=== PATIENT | female | born 1985 | race Caucasian/White ===

== ENCOUNTER 2017-08-01 08:00 | Inpatient (IN) | payer MEDICAID ==
[~2017-08-01] VITALS: Ht 165.1 cm; Wt 72.6 kg
[2017-08-01] MEDS ORDERED: LR 1,000 ML IV ONE (09:12)
[2017-08-01] MEDS ORDERED: OXYTOCIN/NORMAL SALINE 1,000 ML IV SCH (09:12)
[2017-08-01] MEDS ORDERED: LR 1,000 ML IV SCH (09:12)
[2017-08-01] MEDS ORDERED: TERBUTALINE SULFATE 1 MG/ML VIAL SUBCUT ONE (09:15)
[2017-08-01] MEDS ORDERED: NALBUPHINE HCL 10 MG/ML AMP IVP PRN (09:15)
[2017-08-01] MEDS ORDERED: COMMUNICATION ORDER XX ONE (09:30)
[2017-08-01] MEDS ORDERED: OXYTOCIN 30 UNIT in NACL 0.9% 1,000 ML IV ONE (09:30)
[2017-08-01 09:36] LABS: HEMOGLOBIN 10.8 g/dL (12.0-16.0); MEAN CORPUSCULAR HEMOGLOBIN 29 pg (27-31); MEAN CORPUSCULAR HGB CONC 34 % (32-36); MEAN CORPUSCULAR VOLUME 87 fL (79.0-98.0); PLATELET COUNT (AUTO) 163 K/uL (130-430); RED BLOOD CELL COUNT(AUTO) 3.69 MIL/uL (4.2-6.2); RED CELL DISTRIBUTION WIDTH 13.1 % (9.0-15.0); WHITE BLOOD COUNT (AUTO) 9.8 K/uL (4.8-10.8)
[2017-08-01] MEDS ORDERED: FENT2mCg/mL-ROPIVA0.2%/NS EPID 0 ML EP ONE (09:43)
[2017-08-01 09:55] LABS: BASOPHILS % (MANUAL) 0 % (0-2); EOSINOPHILS % (MANUAL) 1 % (0-7); LYMPHOCYTES % (MANUAL) 23 % (20-46); MONOCYTES % (MANUAL) 3 % (0-11)
[2017-08-01] MEDS ORDERED: OXYTOCIN/NORMAL SALINE 1,000 ML IV ONE (10:46)
[2017-08-01] MEDS ORDERED: SENNOSIDES/DOCUSATE SODIUM 1 TAB TABLET(SENOKOT-S) PO PRN (11:00)
[2017-08-01] MEDS ORDERED: METHYLERGONOVINE MALEATE 0.2 MG TABLET PO PRN (11:00)
[2017-08-01] MEDS ORDERED: LANOLIN 7 GM OINT. TP PRN (11:00)
[2017-08-01] MEDS ORDERED: DERMOPLAST SPRAY TP PRN (11:00)
[2017-08-01] MEDS ORDERED: DOCUSATE SODIUM 100 MG CAPSULE PO PRN (11:00)
[2017-08-01] MEDS ORDERED: HYDROcodone/ACETAMIN 5-325 MG TAB (NORCO/ VICODIN) PO PRN (11:00)
[2017-08-01] MEDS ORDERED: ANUSOL 1 EA SUPP.RECT (PREPARATION H) RC PRN (11:00)
[2017-08-01] MEDS ORDERED: HYDROCORTISONE 0.5%, 28.35 GM TOPICAL CREAM TP PRN (11:00)
[2017-08-01] MEDS ORDERED: OXYCODONE/ACETAMINOPHEN 5-325 TABLET PO PRN (11:00)
[2017-08-01] MEDS ORDERED: GLYCERIN/WITCH HAZEL (TUCKS PADS) TP PRN (11:00)
[2017-08-01 14:16] VITALS: BP_SYST 138
[2017-08-01] MEDS: IBUPROFEN 800 MG TABLET PO PRN ×2 (17:50→23:53)
[2017-08-01] MEDS ORDERED: TEMAZEPAM 15 MG CAPSULE PO PRN (21:00)
[2017-08-01] MEDS ORDERED: LIDOCAINE PF 1% 30ML(POUR BTL) INJ ONE (23:59)
[2017-08-01] MEDS ORDERED: LIGHT MINERAL OIL 10 ML VIAL MC ONE (23:59)
[2017-08-02] MEDS: IBUPROFEN 800 MG TABLET PO PRN ×2 (05:19→12:22)
[2017-08-02 08:59] LABS: HEMOGLOBIN 9.8 g/dL (12.0-16.0)
[2017-08-02] MEDS ORDERED: IBUP-1480 PO (11:09)
[2017-08-02] MEDS ORDERED: DOCU-144 PO (11:09)
[2017-08-02] MEDS ORDERED: DIPH-TET-PERTUS Vaccine 0.5 ML VIAL (ADACEL) I.M. ONE (12:00)
[2017-08-02] MEDS ORDERED: FLU VACC QS 2017-18(36MOS+)/PF 0.5 ML/SYR SYRINGE I.M. PRN (12:00)
== END 2017-08-02 13:45 | disposition home or self-care (01) | DRG 560 ==
LOC: SPU 08:00
PROVIDERS: ADMIT Specialist; ATTEND Specialist
PROC: 10E0XZZ Delivery of Products of Conception, External Approach (ICD-10-PCS; principal; 2017-08-01)
PROC: 10907ZC Drainage of Amniotic Fluid, Therapeutic from Products of Conception, Via Natural or Artificial Opening (ICD-10-PCS; 2017-08-01)
PROC: 3E0134Z Introduction of Serum, Toxoid and Vaccine into Subcutaneous Tissue, Percutaneous Approach (ICD-10-PCS; 2017-08-02)
DX: O80 Encounter for full-term uncomplicated delivery (principal); Z23 Encounter for immunization; Z37.0 Single live birth; Z3A.39 39 weeks gestation of pregnancy
CPT/HCPCS: 36415; 81002-TC; 85007; 85018-TC; 85027; 86592; 86886; 86900; 86901; 90715; J2001; J2300; J2590; J3010; J7030; Q2037